=== PATIENT | male | born 1965 | race Caucasian/White ===

== ENCOUNTER → 2018-02-20 | Outpatient (CLI) | payer BC ==
--- NOTE | 2018-02-20 10:24 | US ---
EXAMINATION TYPE: US abdomen complete DATE OF EXAM: 02/20/2018 COMPARISON: NONE CLINICAL HISTORY: Abdominal Pain R10.9. Generalized abd. pain with bloating per patient EXAM MEASUREMENTS: Liver Length: 15.6 cm Gallbladder Wall: 0.2 cm CBD: 0.5 cm Spleen: 14.0 cm Right Kidney: 12.4 x 6.4 x 5.6 cm Left Kidney: 11.6 x 6.0 x 6.4 cm Pancreas: hyperechoic and tail obscured by overlying bowel gas Liver: no masses seen Gallbladder: wnl Evidence for sonographic Sheets's sign: no CBD: wnl Spleen: Enlarged Right Kidney: wnl Left Kidney: superior pole simple appearing cyst = 2.7 x 2.3 x 2.4cm Upper IVC: wnl Abd Aorta: wnl IMPRESSION: Incidentally noted splenomegaly and benign appearing superior left renal cyst. Otherwise unremarkable abdominal ultrasound. No sonographic evidence of cholelithiasis or acute cholecystitis.
== END | disposition home or self-care (01) ==
LOC: RADUSWWP 06:59
PROVIDERS: ATTEND Family Medicine
DX: N28.1 Cyst of kidney, acquired (principal); R16.1 Splenomegaly, not elsewhere classified
CPT/HCPCS: 76700

== ENCOUNTER 2022-01-24 18:01 | Emergency (ER) | payer BC ==
[2022-01-24] MEDS ORDERED: SODIUM CHLORIDE 0.9% 500 ML 500 ML IV STA (18:23)
[2022-01-24 18:44] LABS: Basophils # (A) 0.1 k/uL (0-0.2); Basophils % (A) 1 %; Eosinophils # (A) 0.2 k/uL (0-0.7); Eosinophils % (A) 2 %; HCT 41.7 % (39.0-53.0); HGB 13.8 gm/dL (13.0-17.5); Lymphocytes # (A) 1.9 k/uL (1.0-4.8); Lymphocytes % (A) 18 %; MCH 28.7 pg (25.0-35.0); MCHC 33.1 g/dL (31.0-37.0); MCV 86.8 fL (80.0-100.0); Mean Platelet Volume 8.4; Monocytes # (A) 0.7 k/uL (0-1.0); Monocytes % (A) 7 %; Neutrophils # (A) 7.7 k/uL (1.3-7.7); Neutrophils % (A) 73 %; Platelet Count 164 k/uL (150-450); RDW 14.3 % (11.5-15.5); WBC 10.6 k/uL (3.8-10.6)
[2022-01-24 18:53] LABS: ALT 21 U/L (4-49); AST 38 U/L (17-59); African American GFR (CKD) >90 (>60 ml/min/1.73 sqM); Albumin 4.6 g/dL (3.5-5.0); Alkaline Phosphatase 78 U/L (38-126); Amylase 57 U/L (30-110); Anion Gap 8 mmol/L; Blood Urea Nitrogen 16 mg/dL (9-20); Calcium 9.2 mg/dL (8.4-10.2); Carbon Dioxide 24 mmol/L (22-30); Chloride 106 mmol/L (98-107); Glucose 100 mg/dL (74-99); Lipase 69 U/L (23-300); Non-African American GFR(CKD) 84 (>60 ml/min/1.73 sqM); Potassium 4.1 mmol/L (3.5-5.1); Sodium 138 mmol/L (137-145); Total Bilirubin 1.9 mg/dL (0.2-1.3); Total Protein 7.4 g/dL (6.3-8.2)
[2022-01-24 19:03] LABS: Partial Thromboplastin Time 25.6 sec (22.0-30.0); Prothrombin Time 11.2 sec (9.0-12.0)
--- NOTE | 2022-01-24 20:11 | ED ---
General Adult HPI - General Source: patient, RN notes reviewed, old records reviewed Mode of arrival: ambulatory Limitations: no limitations <Jean Carlos Garza - Last Filed: 01/26/22 20:11> <Benny Feliciano - Last Filed: 01/30/22 05:38> - General Chief complaint: Abdominal Pain Stated complaint: pain in right side abd Time Seen by Provider: 01/24/22 18:16 - History of Present Illness Initial comments: This a 56-year-old male presents emergency department stating that he started having some right upper quadrant discomfort on Saturday and has gotten progressively worse since that time. Patient denies any nausea or vomiting. Patient denies any diarrhea. Patient denies any fever chills. Patient states the pain is in the right upper quadrants and no place else. Patient states even walking or bumps in the road when he drove to the emergency department were increasing the pain in that area. Patient states he had no abdominal surgeries. Patient denies any back pain. Patient denies any dysuria hematuria urinary frequency. (Jean Carlos Garza) - Related Data Home Medications Medication Instructions Recorded Confirmed Multivitamins, Thera [Multivitamin 1 tab PO DAILY 01/24/22 01/24/22 (formulary)] Previous Rx's Medication Instructions Recorded Amoxic-Pot Clav 875-125Mg 1 tab PO Q12HR 1 Days #14 tab 01/24/22 [Augmentin 875-125] Allergies Allergy/AdvReac Type Severity Reaction Status Date / Time No Known Allergies Allergy Verified 01/24/22 22:49 Review of Systems ROS Other: All systems not noted in ROS Statement are negative. <Jean Carlos Garza - Last Filed: 01/26/22 20:11> ROS Other: All systems not noted in ROS Statement are negative. <Benny Feliciano - Last Filed: 01/30/22 05:38> ROS Statement: Those systems with pertinent positive or pertinent negative responses have been documented in the HPI. Past Medical History Past Medical History: Coronary Artery Disease (CAD) History of Any Multi-Drug Resistant Organisms: None Reported Past Surgical History: No Surgical Hx Reported Additional Past Surgical History / Comment(s): Aortic valve replacement. Past Psychological History: No Psychological Hx Reported Smoking Status: Current every day smoker Past Alcohol Use History: Occasional Past Drug Use History: None Reported <Jean Carlos Garza - Last Filed: 01/26/22 20:11> General Exam Limitations: no limitations <Jean Carlos Garza - Last Filed: 01/26/22 20:11> - General Exam Comments Initial Comments: GENERAL: Patient is well-developed and well-nourished. Patient is nontoxic and well-hydr ated and is in mild distress. ENT: Neck is soft and supple. No significant lymphadenopathy is noted. Oropharynx is clear. Moist mucous membranes. Neck has full range of motion without eliciting any pain. EYES: The sclera were anicteric and conjunctiva were pink and moist. Extraocular movements were intact and pupils were equal round and reactive to light. Eyelids were unremarkable. PULMONARY: Unlabored respirations. Good breath sounds bilaterally. No audible rales rhonchi or wheezing was noted. CARDIOVASCULAR: There is a regular rate and rhythm without any murmurs gallops or rubs. ABDOMEN: Patient has right upper quadrant tenderness. SKIN: Skin is clear with no lesions or rashes and otherwise unremarkable. NEUROLOGIC: Patient is alert and oriented x3. Cranial nerves II through XII are grossly intact. Motor and sensory are also intact. Normal speech, volume and content. Symmetrical smile. MUSCULOSKELETAL: Normal extremities with adequate strength and full range of motion. LYMPHATICS: No significant lymphadenopathy is noted PSYCHIATRIC: Normal psychiatric evaluation. (Jean Carlos Garza) Course Vital Signs 01/24/22 01/24/22 01/24/22 18:05 18:54 23:30 Temperature 99 F 97.5 F L Pulse Rate 101 H 73 75 Respiratory 20 18 16 Rate Blood Pressure 111/79 105/76 102/71 O2 Sat by Pulse 100 96 98 Oximetry Medical Decision Making - Lab Data Result diagrams: 01/24/22 18:27 01/24/22 18:27 <Jean Carlos Garza - Last Filed: 01/26/22 20:11> - Lab Data Result diagrams: 01/24/22 18:27 01/24/22 18:27 <Benny Feliciano - Last Filed: 01/30/22 05:38> - Medical Decision Making Dr. Ravi taking over the care of this patient at 9 PM (Jean Carlos Garza) Patient is 56-year-old man with abdominal pain and signed out to me pending CT. I reevaluated the patient following studies and he is feeling better than on arrival. Patient states she would like to go home. We discussed appropriate further care and follow-up, as well as return parameters. (Benny Feliciano) - Lab Data Lab Results 01/24/22 01/24/22 01/24/22 Range/Units 18:27 18:27 18:27 WBC 10.6 (3.8-10.6) k/uL RBC 4.80 (4.30-5.90) m/uL Hgb 13.8 (13.0-17.5) gm/dL Hct 41.7 (39.0-53.0) % MCV 86.8 (80.0-100.0) fL MCH 28.7 (25.0-35.0) pg MCHC 33.1 (31.0-37.0) g/dL RDW 14.3 (11.5-15.5) % Plt Count 164 (150-450) k/uL MPV 8.4 Neutrophils % 73 % Lymphocytes % 18 % Monocytes % 7 % Eosinophils % 2 % Basophils % 1 % Neutrophils # 7.7 (1.3-7.7) k/uL Lymphocytes # 1.9 (1.0-4.8) k/uL Monocytes # 0.7 (0-1.0) k/uL Eosinophils # 0.2 (0-0.7) k/uL Basophils # 0.1 (0-0.2) k/uL PT 11.2 (9.0-12.0) sec INR 1.0 (<1.2) APTT 25.6 (22.0-30.0) sec Sodium 138 (137-145) mmol/L Potassium 4.1 (3.5-5.1) mmol/L Chloride 106 (98-107) mmol/L Carbon Dioxide 24 (22-30) mmol/L Anion Gap 8 mmol/L BUN 16 (9-20) mg/dL Creatinine 1.00 (0.66-1.25) mg/dL Est GFR (CKD-EPI)AfAm >90 (>60 ml/min/1.73 sqM) Est GFR (CKD-EPI)NonAf 84 (>60 ml/min/1.73 sqM) Glucose 100 H (74-99) mg/dL Plasma Lactic Acid El (0.7-2.0) mmol/L Calcium 9.2 (8.4-10.2) mg/dL Total Bilirubin 1.9 H (0.2-1.3) mg/dL AST 38 (17-59) U/L ALT 21 (4-49) U/L Alkaline Phosphatase 78 (38-126) U/L Total Protein 7.4 (6.3-8.2) g/dL Albumin 4.6 (3.5-5.0) g/dL Amylase 57 (30-110) U/L Lipase 69 (23-300) U/L Urine Color Urine Appearance (Clear) Urine pH (5.0-8.0) Ur Specific [place] (1.001-1.035) Urine Protein (Negative) Urine Glucose (UA) (Negative) Urine Ketones (Negative) Urine Blood (Negative) Urine Nitrite (Negative) Urine Bilirubin (Negative) Urine Urobilinogen (<2.0) mg/dL Ur Leukocyte Esterase (Negative) 01/24/22 01/24/22 Range/Units 18:27 21:39 WBC (3.8-10.6) k/uL RBC (4.30-5.90) m/uL Hgb (13.0-17.5) gm/dL Hct (39.0-53.0) % MCV (80.0-100.0) fL MCH (25.0-35.0) pg MCHC (31.0-37.0) g/dL RDW (11.5-15.5) % Plt Count (150-450) k/uL MPV Neutrophils % % Lymphocytes % % Monocytes % % Eosinophils % % Basophils % % Neutrophils # (1.3-7.7) k/uL Lymphocytes # (1.0-4.8) k/uL Monocytes # (0-1.0) k/uL Eosinophils # (0-0.7) k/uL Basophils # (0-0.2) k/uL PT (9.0-12.0) sec INR (<1.2) APTT (22.0-30.0) sec Sodium (137-145) mmol/L Potassium (3.5-5.1) mmol/L Chloride (98-107) mmol/L Carbon Dioxide (22-30) mmol/L Anion Gap mmol/L BUN (9-20) mg/dL Creatinine (0.66-1.25) mg/dL Est GFR (CKD-EPI)AfAm (>60 ml/min/1.73 sqM) Est GFR (CKD-EPI)NonAf (>60 ml/min/1.73 sqM) Glucose (74-99) mg/dL Plasma Lactic Acid El 0.8 (0.7-2.0) mmol/L Calcium (8.4-10.2) mg/dL Total Bilirubin (0.2-1.3) mg/dL AST (17-59) U/L ALT (4-49) U/L Alkaline Phosphatase (38-126) U/L Total Protein (6.3-8.2) g/dL Albumin (3.5-5.0) g/dL Amylase (30-110) U/L Lipase (23-300) U/L Urine Color Yellow Urine Appearance Clear (Clear) Urine pH 7.0 (5.0-8.0) Ur Specific [place] 1.036 H (1.001-1.035) Urine Protein Negative (Negative) Urine Glucose (UA) Negative (Negative) Urine Ketones Negative (Negative) Urine Blood Negative (Negative) Urine Nitrite Negative (Negative) Urine Bilirubin Negative (Negative) Urine Urobilinogen <2.0 (<2.0) mg/dL Ur Leukocyte Esterase Negative (Negative) Disposition <Jean Carlos Garza - Last Filed: 01/26/22 20:11> Is patient prescribed a controlled substance at d/c from ED?: No <Benny Feliciano - Last Filed: 01/30/22 05:38> Clinical Impression: Colitis Disposition: HOME SELF-CARE Condition: Fair Instructions (If sedation given, give patient instructions): Colitis (ED) Prescriptions: Amoxic-Pot Clav 875-125Mg [Augmentin 875-125] 1 tab PO Q12HR 1 Days #14 tab Referrals: Robert Munoz MD [Primary Care Provider] - 1-2 days Donna Finney MD [STAFF PHYSICIAN] - 1-2 days
--- NOTE | 2022-01-24 20:30 | US ---
EXAMINATION TYPE: US gallbladder DATE OF EXAM: 01/24/2022 COMPARISON: US 2018 CLINICAL HISTORY: Right upper quadrant abdominal pain. Abdomen pain EXAM MEASUREMENTS: Liver Length: 16.9 cm Gallbladder Wall: 0.1 cm CBD: 0.4 cm Right Kidney: 13.3 x 6.7 x 6.3 cm Pancreas: obscured by overlying midline bowel gas Liver: wnl Gallbladder: wnl Evidence for sonographic Sheets's sign: no CBD: visualized portions wnl, limited by overlying bowel gas Right Kidney: wnl IMPRESSION: Negative exam. No gallstones or dilated ducts. Right kidney appears large and could relat e to diabetes.
[2022-01-24] MEDS ORDERED: KETOROLAC 15 MG/ML 1 ML VIAL IVP STA (20:54)
--- NOTE | 2022-01-24 21:39 | CT ---
EXAMINATION TYPE: CT abdomen pelvis w con DATE OF EXAM: 01/24/2022 COMPARISON: None HISTORY: Abdominal pain CT DLP: 1977 mGycm Automated exposure control for dose reduction was used. CONTRAST: Performed with IV Contrast, patient injected with 100ml mL of Isovue 300. Images obtained from the diaphragm to the floor the pelvis with the IV contrast. The lung bases are clear of infiltrate. No pleural effusion. Heart size is normal. No pericardial eff usion. Liver spleen stomach pancreas and gallbladder appear intact. The bile ducts are not dilated. There is no adrenal mass. The kidneys show satisfactory contrast opacification. There is no hydroneph rosis. There is 3.7 cm cortical cyst posterior left kidney. No retroperitoneal adenopathy. Ureters ar e not dilated. Bladder distends smoothly. No inguinal hernia. No free fluid in the pelvis. No pelvic mass. There are sigmoid diverticula. No diverticulitis. The appendix is posterior and appears normal. There is some subtle fat stranding involving the ascending colon anteriorly. No intestinal wall thick ening. There is no ascites or free air. No bowel obstruction. The lumbar vertebrae have normal alignment. There is disc space narrowing at L4-5 with spurring of th e endplates. No compression fracture. Facet joints are intact. Bony pelvis is intact. The hip joints are intact. IMPRESSION: There are some minimal fat stranding anterior to the ascending colon. Clinical significance is not cl ear. No evidence of any significant wall thickening. This could be mild focal colitis. Normal appendi x. Mild colonic diverticulosis without diverticulitis.
[2022-01-24 21:58] LABS: Appearance,Urine Clear (Clear); Bilirubin,Urine Negative (Negative); Blood,Urine Negative (Negative); Color,Urine Yellow; Glucose,Urine (UA) Negative (Negative); Ketones,Urine Negative (Negative); Leukocyte Esterase,Urine Negative (Negative); Nitrite,Urine Negative (Negative); Protein,Urine Negative (Negative); Specific Gravity,Urine 1.036 (1.001-1.035); Urobilinogen,Urine <2.0 mg/dL (<2.0)
[2022-01-24] MEDS ORDERED: AMOXIC-POT CLAV 875-125MG 1 EACH TAB PO STA (23:04)
[2022-01-24 23:34] VITALS: BP 102/71; PULSE 75; RESP 16; TEMP 97.5
== END 2022-01-24 23:35 | disposition home or self-care (01) ==
LOC: EC 18:01
DX: K52.9 Noninfective gastroenteritis and colitis, unspecified (principal); F17.200 Nicotine dependence, unspecified, uncomplicated
CPT/HCPCS: 36415; 80053; 82150; 83605; 83690; 85025; 85610; 85730; 81003; 76705; 74177; 99284; 96374; J1885; Q9967

== ENCOUNTER 2023-01-03 22:29 | Observation (INO) | payer BC ==
[2023-01-03] MEDS ORDERED: SODIUM CHLORIDE 0.9% 1,000 ML IV STA (22:40)
--- NOTE | 2023-01-03 22:45 | ED ---
Arrhythmia/Palpitations HPI - General Chief Complaint: Arrhythmia/Palpitations Stated Complaint: High Pulse Time Seen by Provider: 01/03/23 22:40 Source: patient, RN notes reviewed, old records reviewed Mode of arrival: ambulatory Limitations: no limitations - History of Present Illness Initial Comments: This is a 57-year-old male DF for evaluation of weakness and dizziness elevated heart rate palpitations feels like his heart is racing. Patient also complaining of headache, has history of a valve replacement. MD Complaint: rapid heart beat, "heart racing", irregular heart beat, atrial fibrillation Arrhythmia History: atrial fibrillation, SVT Associated Symptoms: denies other symptoms Treatments Prior to Arrival: other - Related Data Previous Rx's Medication Instructions Recorded Apixaban [Eliquis] 5 mg PO BID #60 tab 01/04/23 Metoprolol Tartrate [Lopressor] 25 mg PO BID #60 tab 01/04/23 Allergies Allergy/AdvReac Type Severity Reaction Status Date / Time No Known Allergies Allergy Verified 01/03/23 23:11 Review of Systems ROS Statement: Those systems with pertinent positive or pertinent negative responses have been documented in the HPI. ROS Other: All systems not noted in ROS Statement are negative. Past Medical History Past Medical History: Coronary Artery Disease (CAD) History of Any Multi-Drug Resistant Organisms: None Reported Past Surgical History: No Surgical Hx Reported Additional Past Surgical History / Comment(s): Aortic valve replacement. Past Psychological History: No Psychological Hx Reported Smoking Status: Current every day smoker Past Alcohol Use History: Occasional Past Drug Use History: None Reported General Exam Limitations: no limitations General appearance: alert, in no apparent distress, anxious Head exam: Present: atraumatic, normocephalic, normal inspection Eye exam: Present: normal appearance, PERRL, EOMI. Absent: scleral icterus, conjunctival injection, periorbital swelling ENT exam: Present: normal exam, mucous membranes moist Neck exam: Present: normal inspection. Absent: tenderness, meningismus, lymphadenopathy Respiratory exam: Present: normal lung sounds bilaterally. Absent: respiratory distress, wheezes, rales, rhonchi, stridor Cardiovascular Exam: Present: tachycardia, irregular rhythm, normal heart sounds. Absent: systolic murmur, diastolic murmur, rubs, gallop, clicks GI/Abdominal exam: Present: soft, normal bowel sounds. Absent: distended, tenderness, guarding, rebound, rigid Extremities exam: Present: normal inspection, full ROM, normal capillary refill. Absent: tenderness, pedal edema, joint swelling, calf tenderness Back exam: Present: normal inspection Neurological exam: Present: alert, oriented X3, CN II-XII intact Psychiatric exam: Present: normal affect, normal mood Skin exam: Present: warm, dry, intact, normal color. Absent: rash Course Vital Signs 01/03/23 01/03/23 01/04/23 22:35 23:04 00:35 Temperature 98.6 F Pulse Rate 155 H 144 H 113 H Pulse Rate [ Pulse Oximetery ] Respiratory 20 20 18 Rate Blood Pressure 109/70 113/96 98/54 Blood Pressure [Left Arm] O2 Sat by Pulse 96 97 Oximetry 01/04/23 01/04/23 01/04/23 02:55 03:19 03:32 Temperature Pulse Rate 86 84 Pulse Rate [ 121 H Pulse Oximetery ] Respiratory 18 18 19 Rate Blood Pressure 98/74 98/54 Blood Pressure 91/58 [Left Arm] O2 Sat by Pulse 97 98 99 Oximetry - Reevaluation(s) Reevaluation #1: 01/04/23 00:46 Medical record is reviewed Reevaluation #2: 01/04/23 00:46 Patient symptoms are improving heart rate is improving Reevaluation #3: 01/04/23 00:46 Patient informed results and questions answered Reevaluation #4: 01/04/23 00:46 Was pt. sent in by a medical professional or institution? @ -no Did you speak to anyone other than the patient for history? @ -no Did you review nursing and triage notes? @ -agree Were old charts reviewed? @ -yes Differential Diagnosis? @ -prior EKG interpreted by me (3pts min.)? @ -yes X-rays interpreted by me (1pt min.)? @ -no CT interpreted by me (1pt min.)? @ -no U/S interpreted by me (1pt. min.)? @ -no What testing was considered but not performed? (CT, X-rays, U/S, labs)? Why? @ -no What meds were considered but not given? Why? @ -no Did you discuss the management of the patient with other professionals? @ -no Did you reconcile home meds? @ -no Was smoking cessation discussed for >3mins.? @ -no Was critical care preformed (if so, how long)? @ -yes31 Were there social determinants of health that impacted care today? How? (Homelessness, low income, unemployed, alcoholism, drug addiction, transportation, low edu. Level, literacy, decrease access to med. care, [facility], rehab)? @ -no Was there de-escalation of care discussed even if they declined? (Discuss DNR or withdrawal of care, Hospice)? @ -no What co-morbidities impacted this encounter? (DM, HTN, Smoking, COPD, CAD, Cancer, CVA, Hep., AIDS, mental health diagnosis, sleep apnea, morbid obesity)? @ -none Was patient admitted / discharged? @ -57 male to the emergency department for evaluation. Patient has history of valve replacement heart valve and is found to be in A. fib with RVR currently. Patient be admitted for continued rate control and cardiology evaluation and treatment Admitted Undiagnosed new problem with uncertain prognosis? @ -no Drug Therapy requiring intensive monitoring for toxicity (Heparin, Nitro, Insulin, Cardizem)? @ -no Were any procedures done? @ -no Diagnosis/symptom? @ -Atrial fibrillation with RVR Acute, or Chronic, or Acute on Chronic? @ -acute Uncomplicated (without systemic symptoms) or Complicated (systemic symptoms)? @ -complicated Side effects of treatment? @ -no Exacerbation, Progression, or Severe Exacerbation] @ -no Poses a threat to life or bodily function? @ -yes arrhythmia Reevaluation #5: Differential Palpitations Ventricular arrhythmias, atrial arrhythmias, myocardial infarction, anemia, thyrotoxicosis, electrolyte imbalance, hypokalemia, pulmonary embolism, pulmonary disease, drugs, alcohol, anxiety, stress.... This is not meant to be an all-inclusive list. - Consultations Consultation #1: Spoke with admitting physicians who agreed to admit this patient EKG Findings - EKG Comments: EKG Findings:: EKG A. fib 143 QRS 124 QTC 385 - EKG Results: EKG: interpreted by CARINE Medical Decision Making - Medical Decision Making 57 male to the emergency department for evaluation. Patient has history of valve replacement heart valve and is found to be in A. fib with RVR currently. Patient be admitted for continued rate control and cardiology evaluation and treatment - Lab Data Result diagrams: 01/05/23 04:25 07/01/23 04:25 Lab Results 01/03/23 01/03/23 01/03/23 Range/Units 22:45 22:45 22:45 WBC (3.8-10.6) k/uL RBC (4.30-5.90) m/uL Hgb (13.0-17.5) gm/dL Hct (39.0-53.0) % MCV (80.0-100.0) fL MCH (25.0-35.0) pg MCHC (31.0-37.0) g/dL RDW (11.5-15.5) % Plt Count (150-450) k/uL MPV Neutrophils % % Lymphocytes % % Monocytes % % Eosinophils % % Basophils % % Neutrophils # (1.3-7.7) k/uL Lymphocytes # (1.0-4.8) k/uL Monocytes # (0-1.0) k/uL Eosinophils # (0-0.7) k/uL Basophils # (0-0.2) k/uL PT 11.0 (9.0-12.0) sec INR 1.1 (<1.2) APTT 25.3 (22.0-30.0) sec Sodium 139 (137-145) mmol/L Potassium 4.2 (3.5-5.1) mmol/L Chloride 108 H (98-107) mmol/L Carbon Dioxide 22 (22-30) mmol/L Anion Gap 9 mmol/L BUN 19 (9-20) mg/dL Creatinine 1.44 H (0.66-1.25) mg/dL Est GFR (CKD-EPI)AfAm 62 (>60 ml/min/1.73 sqM) Est GFR (CKD-EPI)NonAf 54 (>60 ml/min/1.73 sqM) Glucose 103 H (74-99) mg/dL Plasma Lactic Acid El 1.0 (0.7-2.0) mmol/L Calcium 9.3 (8.4-10.2) mg/dL Phosphorus 4.0 (2.5-4.5) mg/dL Magnesium 2.0 (1.6-2.3) mg/dL Total Bilirubin 1.0 (0.2-1.3) mg/dL AST 43 (17-59) U/L ALT 27 (4-49) U/L Alkaline Phosphatase 78 (38-126) U/L Troponin I (0.000-0.034) ng/mL Total Protein 7.4 (6.3-8.2) g/dL Albumin 4.5 (3.5-5.0) g/dL TSH 2.780 (0.465-4.680) mIU/L 01/03/23 01/03/23 Range/Units 22:45 22:50 WBC 7.7 (3.8-10.6) k/uL RBC 4.28 L (4.30-5.90) m/uL Hgb 12.9 L (13.0-17.5) gm/dL Hct 36.8 L (39.0-53.0) % MCV 86.1 (80.0-100.0) fL MCH 30.2 (25.0-35.0) pg MCHC 35.0 (31.0-37.0) g/dL RDW 13.9 (11.5-15.5) % Plt Count 126 L (150-450) k/uL MPV 9.0 Neutrophils % 68 % Lymphocytes % 22 % Monocytes % 6 % Eosinophils % 3 % Basophils % 0 % Neutrophils # 5.2 (1.3-7.7) k/uL Lymphocytes # 1.7 (1.0-4.8) k/uL Monocytes # 0.4 (0-1.0) k/uL Eosinophils # 0.3 (0-0.7) k/uL Basophils # 0.0 (0-0.2) k/uL PT (9.0-12.0) sec INR (<1.2) APTT (22.0-30.0) sec Sodium (137-145) mmol/L Potassium (3.5-5.1) mmol/L Chloride (98-107) mmol/L Carbon Dioxide (22-30) mmol/L Anion Gap mmol/L BUN (9-20) mg/dL Creatinine (0.66-1.25) mg/dL Est GFR (CKD-EPI)AfAm (>60 ml/min/1.73 sqM) Est GFR (CKD-EPI)NonAf (>60 ml/min/1.73 sqM) Glucose (74-99) mg/dL Plasma Lactic Acid El (0.7-2.0) mmol/L Calcium (8.4-10.2) mg/dL Phosphorus (2.5-4.5) mg/dL Magnesium (1.6-2.3) mg/dL Total Bilirubin (0.2-1.3) mg/dL AST (17-59) U/L ALT (4-49) U/L Alkaline Phosphatase (38-126) U/L Troponin I 0.024 (0.000-0.034) ng/mL Total Protein (6.3-8.2) g/dL Albumin (3.5-5.0) g/dL TSH (0.465-4.680) mIU/L - EKG Data -: EKG Interpreted by Me Critical Care Time Critical Care Time: Yes Total Critical Care Time: 31 Disposition Clinical Impression: Atrial fibrillation, Tachycardia, Palpitations, Atrial fibrillation with RVR Disposition: ADMITTED IP TO THIS HOSP Condition: Fair Is patient prescribed a controlled substance at d/c from ED?: No Time of Disposition: 01:50
[2023-01-03 23:03] LABS: Basophils % (A) 0 %; Eosinophils # (A) 0.3 k/uL (0-0.7); Eosinophils % (A) 3 %; HCT 36.8 % (39.0-53.0); HGB 12.9 gm/dL (13.0-17.5); Lymphocytes # (A) 1.7 k/uL (1.0-4.8); Lymphocytes % (A) 22 %; MCH 30.2 pg (25.0-35.0); MCV 86.1 fL (80.0-100.0); Monocytes # (A) 0.4 k/uL (0-1.0); Monocytes % (A) 6 %; Neutrophils # (A) 5.2 k/uL (1.3-7.7); Neutrophils % (A) 68 %; Platelet Count 126 k/uL (150-450); RBC 4.28 m/uL (4.30-5.90); RDW 13.9 % (11.5-15.5); WBC 7.7 k/uL (3.8-10.6)
[2023-01-03] MEDS ORDERED: DILTIAZEM DRIP BOLUS FROM BAG 1 MG SOLN IV ONE ×2 (23:06→23:46)
[2023-01-03] MEDS ORDERED: DILTIAZEM 5 MG/ML 5 ML VIAL IVP STA (23:06)
[2023-01-03 23:11] LABS: INR 1.1 (<1.2); Partial Thromboplastin Time 25.3 sec (22.0-30.0)
[2023-01-03 23:17] LABS: ALT 27 U/L (4-49); AST 43 U/L (17-59); African American GFR (CKD) 62 (>60 ml/min/1.73 sqM); Albumin 4.5 g/dL (3.5-5.0); Alkaline Phosphatase 78 U/L (38-126); Anion Gap 9 mmol/L; Blood Urea Nitrogen 19 mg/dL (9-20); Calcium 9.3 mg/dL (8.4-10.2); Carbon Dioxide 22 mmol/L (22-30); Chloride 108 mmol/L (98-107); Glucose 103 mg/dL (74-99); Non-African American GFR(CKD) 54 (>60 ml/min/1.73 sqM); Potassium 4.2 mmol/L (3.5-5.1); Sodium 139 mmol/L (137-145); Total Protein 7.4 g/dL (6.3-8.2)
[2023-01-04] MEDS: DILTIAZEM 125 MG in SODIUM CHLORIDE 0.9% 100 ML IV SCH (00:13)
[2023-01-04] MEDS ORDERED: DILTIAZEM DRIP BOLUS FROM BAG 1 MG SOLN IV ONE (01:38)
[2023-01-04] MEDS ORDERED: HEPARIN SODIUM 1,000 UN/ML (10ML VL) IV PRN (01:41)
[2023-01-04] MEDS ORDERED: HEPARIN SODIUM 1,000 UN/ML (10ML VL) IV ONE (01:41)
[2023-01-04] MEDS: HEPARIN SOD,PORK IN 0.45% NACL 25,000 UNIT in 0.45% NACL 1 250ML.BAG IV SCH ×2 (02:19→04:53)
[2023-01-04] MEDS ORDERED: ONDANSETRON 4 MG/2 ML VIAL IVP PRN (02:45)
[2023-01-04] MEDS ORDERED: NALOXONE 0.4 MG/ML 1 ML VIAL IV PRN (02:45)
[2023-01-04] MEDS ORDERED: HYDROmorphone 1 MG/ML 1 ML SYRINGE IVP PRN (02:45)
[2023-01-04] MEDS: SODIUM CHLORIDE 0.9% 1,000 ML IV SCH ×2 (02:57→16:22)
--- NOTE | 2023-01-04 08:31 | P.HPIM ---
History of Present Illness H&P Date: 01/04/23 Chief Complaint: New-onset atrial fibrillation. This is a history of physical 57-year-old white male with known history of valve replacement who came in with H fibrillation with rapid response. He had this in the past when he had the bowel done many years ago. He also states that he received a letter from the [facility] who states that his valve might have failure issues that are needing to be watched closely. Otherwise patient came in with tachycardia and atrial fibrillation. He is now been stabilized after given Cardizem drip. He will most likely need appropriate rate control and anticoagulation. Review of Systems Constitutional: Denies chills, Denies fever Eyes: denies blurred vision, denies pain Ears, nose, mouth and throat: Denies headache, Denies sore throat Cardiovascular: Reports as per HPI, Reports rapid heart beat Respiratory: Denies cough Gastrointestinal: Denies abdominal pain, Denies diarrhea, Denies nausea, Denies vomiting Musculoskeletal: Denies myalgias Past Medical History Past Medical History: Coronary Artery Disease (CAD) History of Any Multi-Drug Resistant Organisms: None Reported Past Surgical History: No Surgical Hx Reported Additional Past Surgical History / Comment(s): Aortic valve replacement, AAA Past Psychological History: No Psychological Hx Reported Smoking Status: Current every day smoker Past Alcohol Use History: Occasional Past Drug Use History: None Reported Medications and Allergies Home Medications Medication Instructions Recorded Confirmed Type No Known Home Medications 01/03/23 01/03/23 History Allergies Allergy/AdvReac Type Severity Reaction Status Date / Time No Known Allergies Allergy Verified 01/03/23 23:11 Physical Exam Vitals: Vital Signs Temp Pulse Pulse Resp BP BP Pulse Ox 01/04/23 03:32 121 H 19 91/58 99 01/04/23 03:19 84 18 98/54 98 01/04/23 02:55 86 18 98/74 97 01/04/23 00:35 113 H 18 98/54 97 01/03/23 23:04 144 H 20 113/96 01/03/23 22:35 98.6 F 155 H 20 109/70 96 Intake and Output 01/03/23 01/04/23 01/04/23 22:59 06:59 14:59 Intake Total 0 120 Balance 0 120 Intake: Intake, IV Titration 0 Amount Diltiazem 125 mg In 0 Sodium Chloride 0.9% 100 ml @ 5 MG/HR 5 mls/hr IV .Q24H SHAREE Rx#:[id number] Oral 120 Other: # Voids 2 Weight 121.109 kg 121.109 kg - Constitutional General appearance: no acute distress - EENT Eyes: EOMI - Neck Neck: no lymphadenopathy - Respiratory Respiratory: bilateral: CTA - Cardiovascular Rhythm: regular Heart sounds: normal: S1, S2 Abnormal Heart Sounds: no S3 Gallop - Gastrointestinal General gastrointestinal: soft, no tenderness - Psychiatric Psychiatric: A&O x's 3 Results CBC & Chem 7: 01/03/23 22:50 01/03/23 22:45 Labs: Abnormal Lab Results - Last 24 Hours (Table) 01/03/23 01/03/23 01/04/23 Range/Units 22:45 22:50 04:11 RBC 4.28 L (4.30-5.90) m/uL Hgb 12.9 L (13.0-17.5) gm/dL Hct 36.8 L (39.0-53.0) % Plt Count 126 L (150-450) k/uL Chloride 108 H (98-107) mmol/L Creatinine 1.44 H (0.66-1.25) mg/dL Glucose 103 H (74-99) mg/dL Troponin I 0.041 H* (0.000-0.034) ng/mL 01/04/23 Range/Units 07:17 RBC (4.30-5.90) m/uL Hgb (13.0-17.5) gm/dL Hct (39.0-53.0) % Plt Count (150-450) k/uL Chloride (98-107) mmol/L Creatinine (0.66-1.25) mg/dL Glucose (74-99) mg/dL Troponin I 0.062 H* (0.000-0.034) ng/mL Thrombosis Risk Factor Assmnt - Choose All That Apply Any of the Below Risk Factors Present?: Yes Each Factor Represents 1 point: Age 41-60 years, Obesity (BMI >25) Thrombosis Risk Factor Assessment Total Risk Factor Score: 2 Thrombosis Risk Factor Assessment Level: Low Risk Assessment and Plan (1) History of heart valve replacement Current Visit: Yes Status: Acute Code(s): Z95.2 - PRESENCE OF PROSTHETIC HEART VALVE SNOMED Code(s): 824474099 (2) Atrial fibrillation with RVR Current Visit: Yes Status: Acute Code(s): I48.91 - UNSPECIFIED ATRIAL FIBRILLATION SNOMED Code(s): 674772093695132 Plan: I suspect the patient will need appropriate anticoagulation given the nature is paroxysmal disease. Reconcile medications as necessary. We'll DC when cleared by cardiology. See orders otherwise.
[2023-01-04] MEDS: APIXABAN 5 MG TAB PO SCH ×2 (08:54→21:02)
[2023-01-04] MEDS: METOPROLOL TARTRATE 25 MG TAB PO SCH ×2 (08:54→21:02)
--- NOTE | 2023-01-04 09:44 | P.CRDCN ---
History of Present Illness History of present illness: HISTORY OF PRESENT ILLNESS: This is a 57-year-old male with a past medical history significant for bioprosthetic aortic valve in 2013 at [facility] and postoperative paroxysmal atrial fibrillation. 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 We have been asked to see the patient in consultation for atrial fibrillation. Patient examined at the bedside. Patient presented to the hospital yesterday with a chief complaint of palpitations. Patient states that he checked his heart rate on his watch and it was noted to be in the 150s. Patient was found to be in A. fib with RVR. Patient was started on IV heparin and IV Cardizem. At that time and examined patient this morning, the patient is maintaining sinus mechanism. He denies chest pain or pressure. He denies shortness of breath. Denies dizziness or lightheadedness. Blood pressure 91 /51. * EKG reveals atrial fibrillation with RVR * Laboratory data: WBC 7.7. Hemoglobin 12.9. Platelet count 126. Sodium 139. Potassium 4.2. BUN 18. Creatinine 1.44. Lactic acid 1.0. Troponin 0.024. 0.041. 0.062. TSH 2.780. * Current home cardiac medications include none REVIEW OF SYSTEMS: At the time of my exam: CONSTITUTIONAL: Denies fever or chills. HEENT: Denies blurred vision, vision changes, or eye pain. Denies hemoptysis CARDIOVASCULAR: Denies chest pain. Denies orthopnea. Denies PND. Denies palpitations RESPIRATORY: Denies shortness of breath. GASTROINTESTINAL: Denies abdominal pain. Denies nausea or vomiting. HEMATOLOGIC: Denies bleeding disorders. GENITOURINARY: Denies any blood in urine. SKIN: Denies pruitis. Denies rash. PHYSICAL EXAM: VITAL SIGNS: Reviewed. GENERAL: Well-developed in no acute distress. HEENT: Head is normocephalic. Pupils are equal, round. Sclerae anicteric. Mucous membranes of the mouth are moist. Neck supple. No JVD or thyromegaly LUNGS: Respirations even and unlabored. Lungs essentially clear to auscultation bilaterally. HEART: Regular rate and rhythm. S1 and S2 heard. Systolic murmur noted ABDOMEN: Soft. Nondistended. Nontender. EXTREMITIES: Normal range of motion. No clubbing or cyanosis. Peripheral pulses intact. No lower extremity edema NEUROLOGIC: Awake and alert. Oriented x 3. ASSESSMENT: Palpitations New-onset paroxysmal atrial fibrillation with RVR, currently maintaining sinus mechanism Acute kidney injury Abnormal troponins, secondary to above, no evidence of acute coronary syndrome History of bioprosthetic aortic valve replacement in 2012 History of postoperative paroxysmal atrial fibrillation PLAN: Obtain 2-D echo to assess cardiac structure and function Discontinue IV heparin and IV Cardizem Begin metoprolol tartrate 25 mg twice a day Begin Eliquis 5mg BID Continue telemetry monitoring Obtain records from [place] Further recommendations pending patient course Nurse practitioner note has been reviewed by physician. Signing provider agrees with the documented findings, assessment, and plan of care. Past Medical History Past Medical History: Coronary Artery Disease (CAD) History of Any Multi-Drug Resistant Organisms: None Reported Past Surgical History: No Surgical Hx Reported Additional Past Surgical History / Comment(s): Aortic valve replacement, AAA Past Psychological History: No Psychological Hx Reported Smoking Status: Current every day smoker Past Alcohol Use History: Occasional Past Drug Use History: None Reported Medications and Allergies Home Medications Medication Instructions Recorded Confirmed Type No Known Home Medications 01/03/23 01/03/23 History Allergies Allergy/AdvReac Type Severity Reaction Status Date / Time No Known Allergies Allergy Verified 01/03/23 23:11 Physical Exam Vitals: Vital Signs Temp Pulse Pulse Resp BP BP Pulse Ox 01/04/23 03:32 121 H 19 91/58 99 01/04/23 03:19 84 18 98/54 98 01/04/23 02:55 86 18 98/74 97 01/04/23 00:35 113 H 18 98/54 97 01/03/23 23:04 144 H 20 113/96 01/03/23 22:35 98.6 F 155 H 20 109/70 96 Intake and Output 01/03/23 01/04/23 01/04/23 22:59 06:59 14:59 Intake Total 0 120 Balance 0 120 Intake: Intake, IV Titration 0 Amount Diltiazem 125 mg In 0 Sodium Chloride 0.9% 100 ml @ 5 MG/HR 5 mls/hr IV .Q24H SHAREE Rx#:[id number] Oral 120 Other: # Voids 2 Weight 121.109 kg 121.109 kg Results 01/03/23 22:50 01/03/23 22:45 Cardiac Enzymes 01/03/23 01/03/23 01/04/23 Range/Units 22:45 22:45 04:11 AST 43 (17-59) U/L Troponin I 0.024 0.041 H* (0.000-0.034) ng/mL Coagulation 01/03/23 Range/Units 22:45 PT 11.0 (9.0-12.0) sec APTT 25.3 (22.0-30.0) sec CBC 01/03/23 Range/Units 22:50 WBC 7.7 (3.8-10.6) k/uL RBC 4.28 L (4.30-5.90) m/uL Hgb 12.9 L (13.0-17.5) gm/dL Hct 36.8 L (39.0-53.0) % Plt Count 126 L (150-450) k/uL Comprehensive Metabolic Panel 01/03/23 Range/Units 22:45 Sodium 139 (137-145) mmol/L Potassium 4.2 (3.5-5.1) mmol/L Chloride 108 H (98-107) mmol/L Carbon Dioxide 22 (22-30) mmol/L BUN 19 (9-20) mg/dL Creatinine 1.44 H (0.66-1.25) mg/dL Glucose 103 H (74-99) mg/dL Calcium 9.3 (8.4-10.2) mg/dL AST 43 (17-59) U/L ALT 27 (4-49) U/L Alkaline Phosphatase 78 (38-126) U/L Total Protein 7.4 (6.3-8.2) g/dL Albumin 4.5 (3.5-5.0) g/dL Current Medications Generic Name Dose Route Start Last Admin Trade Name Freq PRN Reason Stop Dose Admin Heparin Sodium (Porcine) 0 unit 01/04/23 01:41 Heparin Sodium 1,000 Un/Ml (10ml Vl) IV PER PROTOCOL PRN Low PTT Protocol Hydromorphone HCl 1 mg 01/04/23 02:45 Hydromorphone 1 Mg/Ml 1 Ml Syringe IVP Q3HR PRN Severe Pain (Scale 7 to 10) Diltiazem HCl 125 mg/ Sodium 125 mls @ 5 mls/hr 01/03/23 23:45 01/04/23 00:13 Chloride IV 5 mg/hr .Q24H SHAREE 5 mls/hr Administration 5 MG/HR Heparin Sodium/Sodium Chloride 250 mls @ 10 mls/hr 01/04/23 01:45 01/04/23 04:53 25,000 unit/ Sodium Chloride IV 8.257 units/kg/hr .Q24H SHAREE 10 mls/hr Administration Protocol 8.257 UNITS/KG/HR Sodium Chloride 1,000 mls @ 75 mls/hr 01/04/23 02:45 01/04/23 02:57 Saline 0.9% IV 75 mls/hr .[id number] SHAREE Administration Naloxone HCl 0.2 mg 01/04/23 02:45 Naloxone 0.4 Mg/Ml 1 Ml Vial IV Q2M PRN Opioid Reversal Ondansetron HCl 4 mg 01/04/23 02:45 Ondansetron 4 Mg/2 Ml Vial IVP Q8HR PRN Nausea And Vomiting Intake and Output 01/03/23 01/04/23 01/04/23 22:59 06:59 14:59 Intake Total 0 120 Balance 0 120 Intake: Intake, IV Titration 0 Amount Diltiazem 125 mg In 0 Sodium Chloride 0.9% 100 ml @ 5 MG/HR 5 mls/hr IV .Q24H SHAREE Rx#:[id number] Oral 120 Other: # Voids 2 Weight 121.109 kg 121.109 kg 01/03/23 22:50 01/03/23 22:45
[2023-01-05 05:09] LABS: Basophils % (A) 0 %; Eosinophils # (A) 0.3 k/uL (0-0.7); Eosinophils % (A) 4 %; HGB 11.8 gm/dL (13.0-17.5); Lymphocytes # (A) 1.3 k/uL (1.0-4.8); Lymphocytes % (A) 24 %; MCH 29.3 pg (25.0-35.0); MCHC 33.6 g/dL (31.0-37.0); MCV 87.2 fL (80.0-100.0); Mean Platelet Volume 9.1; Monocytes # (A) 0.2 k/uL (0-1.0); Monocytes % (A) 4 %; Neutrophils # (A) 3.6 k/uL (1.3-7.7); Neutrophils % (A) 65 %; Platelet Count 107 k/uL (150-450); RBC 4.02 m/uL (4.30-5.90); RDW 14.4 % (11.5-15.5); WBC 5.6 k/uL (3.8-10.6)
[2023-01-05 05:25] LABS: ALT 21 U/L (4-49); AST 30 U/L (17-59); African American GFR (CKD) >90 (>60 ml/min/1.73 sqM); Albumin 3.3 g/dL (3.5-5.0); Alkaline Phosphatase 66 U/L (38-126); Anion Gap 4 mmol/L; Blood Urea Nitrogen 17 mg/dL (9-20); Calcium 8.2 mg/dL (8.4-10.2); Carbon Dioxide 24 mmol/L (22-30); Chloride 111 mmol/L (98-107); Glucose 177 mg/dL (74-99); Non-African American GFR(CKD) >90 (>60 ml/min/1.73 sqM); Potassium 4.3 mmol/L (3.5-5.1); Sodium 139 mmol/L (137-145); Total Bilirubin 0.5 mg/dL (0.2-1.3); Total Protein 5.8 g/dL (6.3-8.2)
[2023-01-05] MEDS: APIXABAN 5 MG TAB PO SCH (08:30)
[2023-01-05] MEDS: METOPROLOL TARTRATE 25 MG TAB PO SCH (08:31)
[2023-01-05 09:57] VITALS: BP 108/55; PULSE 58; RESP 16; TEMP 97
--- NOTE | 2023-01-05 09:57 | P.PN ---
Subjective HISTORY OF PRESENT ILLNESS: This is a 57-year-old male with a past medical history significant for bioprosthetic aortic valve in 2013 at [facility] and postoperative paroxysmal atrial fibrillation. Patient does not follow with a repairer helper. We have been asked to see the patient in consultation for atrial fibrillation. Patient examined at the bedside. Patient presented to the hospital yesterday with a chief complaint of palpitations. Patient states that he checked his heart rate on his watch and it was noted to be in the 150s. Patient was found to be in A. fib with RVR. Patient was started on IV heparin and IV Cardizem. At that time and examined patient this morning, the patient is maintaining sinus mechanism. He denies chest pain or pressure. He denies shortness of breath. Denies dizziness or lightheadedness. Blood pressure 91/51. * EKG reveals atrial fibrillation with RVR * Laboratory data: WBC 7.7. Hemoglobin 12.9. Platelet count 126. Sodium 139. Potassium 4.2. BUN 18. Creatinine 1.44. Lactic acid 1.0. Troponin 0.024. 0.041. 0.062. TSH 2.780. * Current home cardiac medications include none 01/05/2023 Patient examined this morning. Patient is sitting up in the chair. Patient is very agitated this morning. Patient states he is "being held captive here." He is upset because Dr. Munoz told him he could go home yesterday. Patient states "If I am not discharged today I am going to shoot myself in the head". Patient denies chest pain or pressure. Denies SOB. Vital signs are stable. Telemetry reveals sinus mechanism. PHYSICAL EXAM: VITAL SIGNS: Reviewed. GENERAL: Well-developed in no acute distress. HEENT: Head is normocephalic. Pupils are equal, round. Sclerae anicteric. Mucous membranes of the mouth are moist. Neck supple. No JVD or thyromegaly LUNGS: Respirations even and unlabored. Lungs essentially clear to auscultation bilaterally. HEART: Regular rate and rhythm. S1 and S2 heard. Systolic murmur noted ABDOMEN: Soft. Nondistended. Nontender. EXTREMITIES: Normal range of motion. No clubbing or cyanosis. Peripheral pulses intact. No lower extremity edema NEUROLOGIC: Awake and alert. Oriented x 3. ASSESSMENT: Palpitations New-onset paroxysmal atrial fibrillation with RVR, currently maintaining sinus mechanism Acute kidney injury Abnormal troponins, secondary to above, no evidence of acute coronary syndrome History of bioprosthetic aortic valve replacement in 2013 History of postoperative paroxysmal atrial fibrillation PLAN: 2-D echo has been ordered. Await results. Still awaiting records from [facility] Continue current cardiac medications Further recommendations pending patient's course Nurse practitioner note has been reviewed by physician. Signing provider agrees with the documented findings, assessment, and plan of care. Objective - Vital Signs Vital signs: Vital Signs Temp 98.6 F 01/03/23 22:35 Pulse 60 01/05/23 04:00 Resp 18 01/05/23 04:00 BP 98/59 01/05/23 04:00 Pulse Ox 99 01/05/23 04:00 FiO2 Intake & Output 01/04/23 01/05/23 01/05/23 18:59 06:59 18:59 Intake Total 120 118 Balance 120 118 Intake: Oral 120 118 Other: # Voids 3 - Labs CBC & Chem 7: 01/05/23 04:25 01/05/23 04:25 Labs: Abnormal Lab Results - Last 24 Hours (Table) 01/05/23 01/05/23 Range/Units 04:25 04:25 RBC 4.02 L (4.30-5.90) m/uL Hgb 11.8 L (13.0-17.5) gm/dL Hct 35.0 L (39.0-53.0) % Plt Count 107 L (150-450) k/uL Chloride 111 H (98-107) mmol/L Glucose 177 H (74-99) mg/dL Calcium 8.2 L (8.4-10.2) mg/dL Total Protein 5.8 L (6.3-8.2) g/dL Albumin 3.3 L (3.5-5.0) g/dL
--- NOTE | 2023-01-05 10:15 | CA ---
Transthoracic Echo Report Name: Marv Branham Age: 57 Gender: M : 1965 Exam Date: 01/04/2023 11:03 Exam Location: [place] [facility] Ht (in): 76 Wt (lb): 267 Ordering Physician: Elaina Cardoza Attending/Referring Phys: [id number], Sony Brim Flexer Yareli Ponce RDCS Procedure CPT: Indications: LV function, afib, hx of AVR Cardiac Hx: Technical Quality: Fair Contrast 1: Total Dose (mL): Contrast 2: Total Dose (mL): MEASUREMENTS (Male / Female) Normal Values 2D ECHO LV Diastolic Diameter PLAX 6.4 cm 4.2 - 5.9 / 3.9 - 5.3 cm LV Systolic Diameter PLAX 4.1 cm IVS Diastolic Thickness 1.8 cm 0.6 - 1.0 / 0.6 - 0.9 cm LVPW Diastolic Thickness 1.3 cm 0.6 - 1.0 / 0.6 - 0.9 cm LV Relative Wall Thickness 0.5 RV Internal Dim ED PLAX 3.5 cm LA Volume 117.4 cm??? 18 - 58 / 22 - 52 cm??? M-MODE Aortic Root Diameter MM 4.4 cm DOPPLER AV Peak Velocity 391.6 cm/s AV Peak Gradient 61.3 mmHg AV Mean Velocity 309.8 cm/s AV Mean Gradient 40.7 mmHg AV Velocity Time Integral 103.5 cm AI Peak Velocity 468.3 cm/s AI Peak Gradient 87.7 mmHg AI Pressure Half Time 477.0 ms LVOT Peak Velocity 69.4 cm/s LVOT Peak Gradient 1.9 mmHg LVOT Velocity Time Integral 15.5 cm MV Area PHT 4.1 cm??? Mitral E Point Velocity 111.9 cm/s Mitral A Point Velocity 0.1 cm/s Mitral E to A Ratio 841.3 MV Deceleration Time 186.7 ms MV E' Velocity 6.5 cm/s Mitral E to MV E' Ratio 17.3 TR Peak Velocity 215.2 cm/s TR Peak Gradient 18.5 mmHg FINDINGS Left Ventricle Severely increased left ventricular wall thickness. Left ventricular cavity size normal. Abnormal (paradoxical) septal motion consistent with postoperative state. Left ventricular ejection fraction is estimated at 45-50 %. Right Ventricle Mild right ventricular dilatation. Right ventricular systolic pressure within normal limits. Right Atrium Normal right atrial size. Left Atrium Severely increased left atrial volume. Mildly increased left atrial area. Mitral Valve Structurally normal mitral valve. [id number] mitral regurgitation. Aortic Valve Bioprosthetic aortic valve. Gradient recorded across the prosthetic aortic valve above the expected range. Prosthetic aortic valve stenosis. Moderate , highly questionable periprosthetic, regurgitation of the aortic valve. Tricuspid Valve Structurally normal tricuspid valve. Mild tricuspid regurgitation. Pulmonic Valve Trace pulmonic regurgitation. Pericardium No pericardial effusion. Aorta Normal size aortic root and proximal ascending aorta. CONCLUSIONS Mild LV systolic dysfunction Prosthetic valve dysfunction with moderate stenosis with a peak gradient of 61 mm and a mean gradient of 40 mm across the valve Moderate aortic regurgitation seems both valvular and perivalvular Consider transesophageal echo for further evaluation Previewed by: Dr. Rupesh Finney MD (Electronically Signed) Final Date: 05 January 2023 10:15
--- NOTE | 2023-01-05 12:51 | PN ---
PROGRESS NOTE This is a 57-year-old gentleman with history of aortic stenosis, for which he underwent aortic valve replacement with bioprosthetic valve nearly 10 years ago at [facility] and apparently also underwent repair of aortic aneurysm at that time, presented to hospital with paroxysmal atrial fibrillation, converted to sinus rhythm. We started him on Eliquis 5 mg b.i.d. and metoprolol 25 mg b.i.d. The patient had an echocardiogram yesterday and we had been trying to get hold of his records from [place] unsuccessfully. The patient is unhappy that he was not discharged home yesterday, but we did not have any information on him, neither the records from [facility] were available nor the echo information regarding the prosthetic valve, so we could not have safely discharged him. The echo reveals that his bioprosthetic valve is not functioning normally. He has significant stenosis of the prosthetic valve with a peak gradient of 60 mm and has moderate aortic regurgitation, some of which seems perivalvular. I told the patient that he needs further evaluation of the valve with a transesophageal echo. Hopefully, the patient will follow up with us in the office and we can take care of this. At the moment, the patient is stable clinically, free of cardiac symptoms, and is no longer in atrial fibrillation. We still do not have records from [place]. Hopefully, again, these can be obtained in the outpatient setup. The patient is stable from a cardiac standpoint at this time for discharge and needs followup within the next 1 week and further evaluation of the prosthetic valve. MMODL / IJN: [id number] /
--- NOTE | 2023-01-05 13:47 | P.DS ---
Providers Date of admission: 01/04/23 02:46 Expected date of discharge: 01/05/23 Attending physician: Robert Munoz Consults: 01/04/23 02:45 Consult Physician Routine Consulting Provider: Blanka Holman Consult Reason/Comments: afibRVR Do you want consulting provider notified?: Yes Primary care physician: Robert Munoz Hospital Course: Discharge diagnoses; New-onset paroxysmal atrial fibrillation with RVR, currently maintaining sinus mechanism Acute kidney injury Abnormal troponins, secondary to above, no evidence of acute coronary syndrome History of bioprosthetic aortic valve replacement in 2013 History of postoperative paroxysmal atrial fibrillation Hospital course; This is a 57-year-old male with a past medical history significant for bioprosthetic aortic valve in 2013 at [facility] and postoperative paroxysmal atrial fibrillation. . Patient presented to the hospital yesterday with a chief complaint of palpitations. Patient states that he checked his heart rate on his watch and it was noted to be in the 150s. Patient was found to be in A. fib with RVR 7. Patient was seen by cardiology, currently in sinus rhythm. Cardiology recommended discharging Patient on Eliquis and Lopressor PHYSICAL EXAMINATION: GENERAL: The patient is alert and oriented x3, not in any acute distress. Well developed, well nourished. HEENT: Pupils are round and equally reacting to light. EOMI. No scleral icterus. No conjunctival pallor. Normocephalic, atraumatic. No pharyngeal erythema. No thyromegaly. CARDIOVASCULAR: S1 and S2 present. No murmurs, rubs, or gallops. PULMONARY: Chest is clear to auscultation, no wheezing or crackles. ABDOMEN: Soft, nontender, nondistended, normoactive bowel sounds. No palpable organomegaly. MUSCULOSKELETAL: No joint swelling or deformity. EXTREMITIES: No cyanosis, clubbing, or pedal edema. NEUROLOGICAL: Gross neurological examination did not reveal any focal deficits. SKIN: No rashes. Patient Condition at Discharge: Fair Plan - Discharge Summary Discharge Rx Participant: No New Discharge Prescriptions: New Apixaban [Eliquis] 5 mg PO BID #60 tab Metoprolol Tartrate [Lopressor] 25 mg PO BID #60 tab Discharge Medication List Apixaban [Eliquis] 5 mg PO BID #60 tab 01/04/23 [Rx] Metoprolol Tartrate [Lopressor] 25 mg PO BID #60 tab 01/04/23 [Rx] Follow up Appointment(s)/Referral(s): Robert Munoz MD [Primary Care Provider] - 1-2 days (Offices are closed at this time. Please call to make a follow up appointment.) Rupesh Finney MD [STAFF PHYSICIAN] - 1 Week (Offices are closed at this time. Please call to make a follow up appointment.) Patient Instructions/Handouts: A-fib (Atrial Fibrillation) (DC), Safe Use of Anticoagulants (DC) Activity/Diet/Wound Care/Special Instructions: $10 copay card for eliquis is in chart Please follow up with your reliability manager at [place] related to your valve for further care. Discharge Disposition: HOME SELF-CARE
== END 2023-01-05 12:38 | disposition home or self-care (01) ==
LOC: EC 22:29 → 3SCARD 01-04 02:46
PROVIDERS: ADMIT Family Medicine; ATTEND Family Medicine
DX: I48.91 Unspecified atrial fibrillation (principal); I48.0 Paroxysmal atrial fibrillation; N17.9 Acute kidney failure, unspecified; Z95.2 Presence of prosthetic heart valve; I47.1 Supraventricular tachycardia; I71.40 Abdominal aortic aneurysm, without rupture, unspecified; I25.10 Atherosclerotic heart disease of native coronary artery without angina pectoris; F17.200 Nicotine dependence, unspecified, uncomplicated; Z86.73 Personal history of transient ischemic attack (TIA), and cerebral infarction without residual deficits; E66.9 Obesity, unspecified; Z68.32 Body mass index [BMI] 32.0-32.9, adult
CPT/HCPCS: 96376; 96374; 99285; 36415; 94760; 93005; 93306; 80053 ×2; 83605; 83735; 84100; 84443; 84484 ×2; 85025 ×2; 85610; 85730; G0378 ×2; J1644